=== PATIENT | female | born 1960 | race Two or more races ===

== ENCOUNTER → 2016-08-26 | Outpatient (REF) | payer MEDICARE, MEDICAID | LOC: M SFHCCLAY 15:21 | PROVIDERS: ATTEND Family Medicine | DX: Z00.00 Encounter for general adult medical examination without abnormal findings (principal); Z11.59 Encounter for screening for other viral diseases; Z23 Encounter for immunization; F17.210 Nicotine dependence, cigarettes, uncomplicated | CPT/HCPCS: 90471; G0472 ==

== ENCOUNTER → 2016-09-23 | Outpatient (CLI) | payer MEDICARE, MEDICAID ==
--- NOTE | 2016-09-23 15:11 | REPMRS ---
Patient History The patient states she has not had a clinical breast exam in over a year. Patient is postmenopausal and had first child at age 34. Digital Woman Screen Mammo: September 23, 2016 - Exam #: [id number] Bilateral CC and MLO view(s) were taken. Technologist: Angy Orantes, Technologist Prior study comparison: May 19, 2012, digital woman screen mammo performed at [facility] to [facility]. May 19, 2011, digital woman screen mammo performed at [facility] to [facility]. FINDINGS: There are scattered fibroglandular densities. There is a fairly symmetric fibroglandular pattern in both breasts. There has been no interval development of masses, areas of architectural distortion or clusters of microcalcifications typical of malignancy. ASSESSMENT: BI-RADS/ACR category 2 mammogram. Benign finding(s). Recommendation Routine screening mammogram of both breasts in 1 year (for women over age 40). This mammogram was interpreted with the aid of an FDA-approved computer-aided dectection system. Electronically Signed By: Manny Meyers MD 09/23/16 [id number]
== END ==
LOC: M WHC 12:52
PROVIDERS: ATTEND Family Medicine
DX: Z12.31 Encounter for screening mammogram for malignant neoplasm of breast (principal)

== ENCOUNTER 2017-01-09 15:11 | Emergency (ER) | payer MEDICARE, MEDICAID ==
[~2017-01-09] VITALS: Ht 160 cm; Wt 102.3 kg
[2017-01-09 17:30] LABS: BASO % 0.1 % (0.0-1.0); EOS # 0.1 10^3/uL (0.0-0.50); EOS % 1.1 % (0.0-3.0); IMMATURE GRANULOCYTE % 0.1 % (0-0); LYMPH % 13.4 % (24.0-44.0); MEAN CORPUSCULAR VOLUME 90.5 fl (80.0-96.0); MONO # 0.5 10^3/uL (0.0-0.8); MONO % 6.4 % (0.0-5.0); NEUTROPHILS # 5.6 10^3/uL (1.8-7.7); NEUTROPHILS % 78.9 % (36.0-66.0); PLATELET COUNT, AUTOMATED 208 10^3/uL (150-450); RED CELL DISTRIBUTION WIDTH 13.6 % (11.5-14.5); WHITE BLOOD COUNT 7.2 10^3/uL (4.0-10.0)
[2017-01-09 17:43] LABS: ANION GAP 7 MEQ/L (8-16); BLOOD UREA NITROGEN 19 MG/DL (7-18); CARBON DIOXIDE LEVEL 27 MEQ/L (21-32); CHLORIDE LEVEL 108 MEQ/L (98-107); CREATININE FOR GFR 0.91 MG/DL (0.55-1.02); GLOMERULAR FILTRATION RATE > 60.0 (>51); GLUCOSE, FASTING 92 MG/DL (70-105); POTASSIUM SERUM 4.2 MEQ/L (3.5-5.1); SODIUM LEVEL 142 MEQ/L (136-145)
[2017-01-09 20:17] VITALS: BP 148/88
--- NOTE | 2017-01-10 08:07 | REP ---
CHEST, TWO VIEWS: HISTORY: Cough. COMPARISON: 09/01/2014 The lungs are clear. The heart is normal in size. The pulmonary vasculature is normal in appearance. The bony structure is intact. IMPRESSION: No acute disease. Signed by Mt Alfredo MD 01/10/2017 09:13 A
== END 2017-01-09 20:21 | disposition home or self-care (01) ==
LOC: M ED 15:11 → EDBD 15:11 → M ED 20:21
DX: R19.7 Diarrhea, unspecified (principal); R05 Cough; F17.200 Nicotine dependence, unspecified, uncomplicated; Z88.1 Allergy status to other antibiotic agents

== ENCOUNTER → 2017-02-24 | Outpatient (REF) | payer MEDICARE, MEDICAID ==
[2017-02-24 16:46] LABS: ALBUMIN 3.5 GM/DL (3.2-5.2); ALBUMIN/GLOBULIN RATIO 0.97 (1.00-1.93); ALKALINE PHOSPHATASE 89 U/L (45-117); ALT/SGPT 28 U/L (12-78); ANION GAP 5 MEQ/L (8-16); AST/SGOT 15 U/L (7-37); BILIRUBIN,TOTAL 0.4 MG/DL (0.2-1.0); BLOOD UREA NITROGEN 17 MG/DL (7-18); CALCIUM LEVEL 8.8 MG/DL (8.5-10.1); CARBON DIOXIDE LEVEL 28 MEQ/L (21-32); CHLORIDE LEVEL 109 MEQ/L (98-107); CHOLESTEROL LEVEL 256 MG/DL (<200); CHOLESTEROL RISK RATIO 6.918 (<5); CREATININE FOR GFR 0.85 MG/DL (0.55-1.02); GLOMERULAR FILTRATION RATE > 60.0 (>51); GLUCOSE, FASTING 91 MG/DL (70-105); HDL CHOLESTEROL 37 MG/DL (>40); LDL CHOLESTEROL 168.4 MG/DL (<100); NON-HDL-C 219 MG/DL; POTASSIUM SERUM 4.4 MEQ/L (3.5-5.1); SODIUM LEVEL 142 MEQ/L (136-145); TOTAL PROTEIN 7.1 GM/DL (6.4-8.2); TRIGLYCERIDES LEVEL 253 MG/DL (<150)
[2017-02-24 16:47] LABS: ESTIMATED AVERAGE GLUCOSE 123 MG/DL (60-110); HEMOGLOBIN A1c 5.9 %
== END ==
LOC: M LAB REF 15:38
DX: Z00.00 Encounter for general adult medical examination without abnormal findings (principal); Z79.899 Other long term (current) drug therapy
CPT/HCPCS: 84443

== ENCOUNTER → 2017-03-29 | Outpatient (REF) | payer MEDICARE, MEDICAID ==
[2017-03-31 10:47] LABS: HIV 1&2 SCREEN CENTAUR NEGATIVE (NEGATIVE)
== END ==
LOC: M SFHCCLAY 14:25
DX: Z11.4 Encounter for screening for human immunodeficiency virus [HIV] (principal)
CPT/HCPCS: 87389

== ENCOUNTER → 2017-04-22 | Outpatient (REF) | payer MEDICARE ==
[2017-04-22 20:25] LABS: AMORPHOUS SEDIMENT MODERATE (NEGATIVE); APPEARANCE, URINE TURBID (CLEAR); BACTERIA, URINE AUTO NEGATIVE (NEGATIVE); BILIRUBIN, URINE AUTO NEGATIVE (NEGATIVE); BLOOD, URINE BLOOD NEGATIVE (NEGATIVE); COLOR, URINE AMBER (YELLOW); GLUCOSE, URINE (UA) AUTO NEGATIVE (NEGATIVE); KETONE, URINE AUTO NEGATIVE (NEGATIVE); LEUKOCYTE ESTERASE, URINE AUTO NEGATIVE (NEGATIVE); NITRITE, URINE AUTO NEGATIVE (NEGATIVE); PROTEIN, URINE AUTO NEGATIVE (NEGATIVE); RBC, URINE AUTO 0 /HPF (0-3); SPECIFIC GRAVITY URINE AUTO 1.027 (1.002-1.035); SQUAMOUS EPITHELIAL CELL UR AU 7 /HPF (0-6); WBC, URINE AUTO 6 /HPF (0-3)
== END ==
LOC: M SMT 17:04
DX: N39.41 Urge incontinence (principal)
CPT/HCPCS: 81001

== ENCOUNTER → 2017-04-30 | Outpatient (REF) | payer MEDICARE, MEDICAID | LOC: M SMT 17:01 | DX: N39.41 Urge incontinence (principal) | CPT/HCPCS: 87086 ==

== ENCOUNTER → 2017-07-08 | Outpatient (REF) | payer MEDICARE, MEDICAID ==
[2017-07-08 15:37] LABS: CHOLESTEROL LEVEL 167 MG/DL (<200); CHOLESTEROL RISK RATIO 4.638 (<5); HDL CHOLESTEROL 36 MG/DL (>40); LDL CHOLESTEROL 106.6 MG/DL (<100); NON-HDL-C 131 MG/DL; TRIGLYCERIDES LEVEL 122 MG/DL (<150)
[2017-07-09 12:29] LABS: HEPATITIS C VIRUS ABY INDEX < 0.0 INDEX (<0.8)
== END ==
LOC: M LAB REF 14:15
DX: R94.6 Abnormal results of thyroid function studies (principal); Z79.899 Other long term (current) drug therapy
CPT/HCPCS: 84443

== ENCOUNTER 2017-09-20 20:14 | Inpatient (IN) | payer MEDICARE, MEDICAID ==
[2017-09-20 21:38] LABS: BASO % 0.3 % (0.0-1.0); EOS # 0.3 10^3/uL (0.0-0.50); EOS % 2.5 % (0.0-3.0); HEMATOCRIT 47.6 % (36.0-47.0); HEMOGLOBIN 15.4 g/dl (12.0-15.5); IMMATURE GRANULOCYTE % 0.4 % (0-3.0); LYMPH # 2.4 10^3/uL (1.5-4.5); LYMPH % 23.9 % (24.0-44.0); MEAN CORPUSCULAR HEMOGLOBIN 29.6 pg (27.0-33.0); MEAN CORPUSCULAR HGB CONC 32.4 g/dl (32.0-36.5); MEAN CORPUSCULAR VOLUME 91.4 fl (80.0-96.0); MONO # 0.7 10^3/uL (0.0-0.8); MONO % 6.5 % (0.0-5.0); NEUTROPHILS # 6.7 10^3/uL (1.8-7.7); NEUTROPHILS % 66.4 % (36.0-66.0); PLATELET COUNT, AUTOMATED 207 10^3/uL (150-450); RED BLOOD COUNT 5.21 10^6/uL (4.00-5.40); RED CELL DISTRIBUTION WIDTH 13.8 % (11.5-14.5)
[2017-09-20 22:04] LABS: ALBUMIN 3.2 GM/DL (3.2-5.2); ALBUMIN/GLOBULIN RATIO 0.78 (1.00-1.93); ALKALINE PHOSPHATASE 112 U/L (45-117); ALT/SGPT 22 U/L (12-78); ANION GAP 7 MEQ/L (8-16); AST/SGOT 12 U/L (7-37); BILIRUBIN,DIRECT < 0.1 MG/DL (0.0-0.2); BILIRUBIN,TOTAL 0.5 MG/DL (0.2-1.0); BLOOD UREA NITROGEN 12 MG/DL (7-18); CALCIUM LEVEL 8.8 MG/DL (8.5-10.1); CARBON DIOXIDE LEVEL 25 MEQ/L (21-32); CHLORIDE LEVEL 111 MEQ/L (98-107); CK-MB VALUE MASS 1.1 NG/ML (<3.6); CPK CREATINE PHOSPHOKINASE 58 U/L (26-192); CREATININE FOR GFR 0.86 MG/DL (0.55-1.30); GLOMERULAR FILTRATION RATE > 60.0 (>51); GLUCOSE, FASTING 118 MG/DL (70-100); LIPASE 72 U/L (73-393); MB/CK RELATIVE INDEX 1.89 (< OR =4); POTASSIUM SERUM 3.8 MEQ/L (3.5-5.1); SODIUM LEVEL 143 MEQ/L (136-145); TOTAL PROTEIN 7.3 GM/DL (6.4-8.2); TROPONIN I < 0.02 NG/ML (< 0.10)
[2017-09-20] MEDS: GASTROGRAFIN SOLUTION 30ML PO ×2 (22:29→23:01)
[2017-09-20] MEDS ORDERED: ISOVUE-370 76% 100ML VIAL (Q9967) As Ordered (23:18)
[2017-09-20 23:53] LABS: APPEARANCE, URINE HAZY (CLEAR); BACTERIA, URINE AUTO 1+ (NEGATIVE); BILIRUBIN, URINE AUTO NEGATIVE (NEGATIVE); BLOOD, URINE BLOOD NEGATIVE (NEGATIVE); COLOR, URINE YELLOW (YELLOW); GLUCOSE, URINE (UA) AUTO NEGATIVE (NEGATIVE); KETONE, URINE AUTO NEGATIVE (NEGATIVE); LEUKOCYTE ESTERASE, URINE AUTO NEGATIVE (NEGATIVE); MUCUS, URINE SMALL (NEGATIVE); NITRITE, URINE AUTO NEGATIVE (NEGATIVE); PROTEIN, URINE AUTO NEGATIVE (NEGATIVE); RBC, URINE AUTO 2 /HPF (0-3); SPECIFIC GRAVITY URINE AUTO 1.023 (1.002-1.035); SQUAMOUS EPITHELIAL CELL UR AU 6 /HPF (0-6); WBC, URINE AUTO 2 /HPF (0-3)
[2017-09-21] MEDS: METOCLOPRAMIDE INJ 10MG/2ML VIAL (J2765) IV (04:40)
[2017-09-21] MEDS: MORPHINE 4 MG/ML 1ML VIAL/SYRINGE (J2270) IV (04:41)
[2017-09-21] MEDS ORDERED: MORPHINE 4 MG/ML 1ML VIAL/SYRINGE (J2270) IV (05:15)
[2017-09-21] MEDS: PIPERACILLIN/TAZOBACTAM SOD 3.375 GM in D5W MINI-BAG PLUS 50 ML IV ×3 (06:42→18:20)
[2017-09-21] MEDS: PANTOPRAZOLE 40MG INJ (PROTONIX) (C9113) IV (06:42)
[2017-09-21] MEDS: NS 1,000 ML IV ×3 (06:43→22:57)
[2017-09-21 07:10] LABS: BASO % 0.4 % (0.0-1.0); EOS # 0.2 10^3/uL (0.0-0.50); EOS % 2.7 % (0.0-3.0); HEMATOCRIT 42.5 % (36.0-47.0); HEMOGLOBIN 14.1 g/dl (12.0-15.5); IMMATURE GRANULOCYTE % 0.3 % (0-3.0); LYMPH # 2.6 10^3/uL (1.5-4.5); LYMPH % 28.4 % (24.0-44.0); MEAN CORPUSCULAR HEMOGLOBIN 29.6 pg (27.0-33.0); MEAN CORPUSCULAR HGB CONC 33.2 g/dl (32.0-36.5); MEAN CORPUSCULAR VOLUME 89.3 fl (80.0-96.0); MONO # 0.6 10^3/uL (0.0-0.8); MONO % 6.7 % (0.0-5.0); NEUTROPHILS # 5.5 10^3/uL (1.8-7.7); NEUTROPHILS % 61.5 % (36.0-66.0); PLATELET COUNT, AUTOMATED 201 10^3/uL (150-450); RED BLOOD COUNT 4.76 10^6/uL (4.00-5.40); RED CELL DISTRIBUTION WIDTH 13.6 % (11.5-14.5)
[2017-09-21 07:34] LABS: ALBUMIN 2.8 GM/DL (3.2-5.2); ALBUMIN/GLOBULIN RATIO 0.78 (1.00-1.93); ALKALINE PHOSPHATASE 109 U/L (45-117); ALT/SGPT 25 U/L (12-78); ANION GAP 6 MEQ/L (8-16); AST/SGOT 21 U/L (7-37); BILIRUBIN,TOTAL 0.6 MG/DL (0.2-1.0); BLOOD UREA NITROGEN 10 MG/DL (7-18); CALCIUM LEVEL 8.2 MG/DL (8.5-10.1); CARBON DIOXIDE LEVEL 27 MEQ/L (21-32); CHLORIDE LEVEL 110 MEQ/L (98-107); GLOMERULAR FILTRATION RATE > 60.0 (>51); GLUCOSE, FASTING 86 MG/DL (70-100); POTASSIUM SERUM 3.7 MEQ/L (3.5-5.1); SODIUM LEVEL 143 MEQ/L (136-145); TOTAL PROTEIN 6.4 GM/DL (6.4-8.2)
[2017-09-21] MEDS: oxyBUTYnin 5 MG TAB PO ×2 (09:37→22:57)
[2017-09-21] MEDS: ENOXAPARIN 40 MG/0.4 ML SYRINGE (J1650) SC (09:38)
[2017-09-21] MEDS ORDERED: fentaNYL 100 MCG/2 ML INJECTION (J3010) As Ordered (20:23)
[2017-09-21] MEDS ORDERED: MIDAZOLAM INJ 2 MG/2 ML VIAL (J2250) As Ordered (20:24)
[2017-09-21] MEDS ORDERED: PROPOFOL 200 MG/20 ML VIAL As Ordered (20:24)
[2017-09-21] MEDS ORDERED: LIDOCAINE 2% INJ 100 MG/5 ML SDV (FOR ANES.) As Ordered (20:24)
[2017-09-21] MEDS ORDERED: ROCURONIUM BROMIDE 50 MG/5 ML VIAL As Ordered (20:24)
[2017-09-21] MEDS ORDERED: ePHEDrine SULFATE 25 MG/5 ML(5MG/ML) SYRINGE As Ordered (20:57)
[2017-09-21] MEDS ORDERED: PHENYLephrine HCL 500 MCG/5 ML (100MCG/ML) SYRINGE (J2370) As Ordered (20:57)
[2017-09-21] MEDS ORDERED: GLYCOPYRROLATE INJ 0.2 MG/ML 2 ML VIAL As Ordered (21:01)
[2017-09-21] MEDS: ISOVUE-300 61% 50ML VIAL (Q9967) As Ordered (21:02)
[2017-09-21] MEDS ORDERED: ISOVUE-300 61% 50ML VIAL (Q9967) As Ordered (21:04)
[2017-09-21] MEDS ORDERED: SUGAMMADEX SODIUM 500 MG/5 ML VIAL (BRIDION) As Ordered (21:12)
[2017-09-21] MEDS ORDERED: ONDANSETRON 4MG/2ML VIAL (J2405) As Ordered (21:13)
[2017-09-21] MEDS ORDERED: dexameTHASONE 4 MG/ML 1ML VIAL (J1100) As Ordered ×2 (21:13)
[2017-09-21] MEDS ORDERED: HYDROMORPHONE HCL 0.5 MG/ 0.5 ML SYRINGE (J1170 PER 1) IV (22:00)
[2017-09-21] MEDS: LR 1,000 ML IV (22:00)
[2017-09-21] MEDS ORDERED: ONDANSETRON 4MG/2ML VIAL (J2405) IV (22:00)
[2017-09-21] MEDS ORDERED: fentaNYL 100 MCG/2 ML INJECTION (J3010) IV (22:00)
[2017-09-21] MEDS ORDERED: PERCOCET 5MG/325MG TAB PO (22:00)
[2017-09-22] MEDS: ONDANSETRON 4MG/2ML VIAL (J2405) IV (00:38)
[2017-09-22] MEDS: PIPERACILLIN/TAZOBACTAM SOD 3.375 GM in D5W MINI-BAG PLUS 50 ML IV ×4 (00:38→17:45)
[2017-09-22] MEDS: PANTOPRAZOLE 40MG INJ (PROTONIX) (C9113) IV (06:09)
[2017-09-22 06:16] LABS: HEMATOCRIT 43.5 % (36.0-47.0); HEMOGLOBIN 14.2 g/dl (12.0-15.5); MEAN CORPUSCULAR HEMOGLOBIN 28.7 pg (27.0-33.0); MEAN CORPUSCULAR HGB CONC 32.6 g/dl (32.0-36.5); MEAN CORPUSCULAR VOLUME 87.9 fl (80.0-96.0); PLATELET COUNT, AUTOMATED 187 10^3/uL (150-450); RED BLOOD COUNT 4.95 10^6/uL (4.00-5.40); RED CELL DISTRIBUTION WIDTH 13.4 % (11.5-14.5); WHITE BLOOD COUNT 4.9 10^3/uL (4.0-10.0)
[2017-09-22 06:53] LABS: ALBUMIN 2.8 GM/DL (3.2-5.2); ALBUMIN/GLOBULIN RATIO 0.72 (1.00-1.93); ALKALINE PHOSPHATASE 289 U/L (45-117); ALT/SGPT 260 U/L (12-78); ANION GAP 7 MEQ/L (8-16); AST/SGOT 351 U/L (7-37); BLOOD UREA NITROGEN 7 MG/DL (7-18); CALCIUM LEVEL 8.4 MG/DL (8.5-10.1); CARBON DIOXIDE LEVEL 26 MEQ/L (21-32); CHLORIDE LEVEL 110 MEQ/L (98-107); CREATININE FOR GFR 0.74 MG/DL (0.55-1.30); GLOMERULAR FILTRATION RATE > 60.0 (>51); GLUCOSE, FASTING 148 MG/DL (70-100); POTASSIUM SERUM 3.7 MEQ/L (3.5-5.1); SODIUM LEVEL 143 MEQ/L (136-145); TOTAL PROTEIN 6.7 GM/DL (6.4-8.2)
[2017-09-22] MEDS: oxyBUTYnin 5 MG TAB PO ×2 (08:36→21:42)
[2017-09-22] MEDS: ENOXAPARIN 40 MG/0.4 ML SYRINGE (J1650) SC (08:36)
[2017-09-22] MEDS: NS 1,000 ML IV (12:02)
[2017-09-23] MEDS: PIPERACILLIN/TAZOBACTAM SOD 3.375 GM in D5W MINI-BAG PLUS 50 ML IV ×5 (00:07→23:54)
[2017-09-23] MEDS: PANTOPRAZOLE 40MG INJ (PROTONIX) (C9113) IV (05:14)
[2017-09-23 06:24] LABS: BASO % 0.2 % (0.0-1.0); EOS # 0.1 10^3/uL (0.0-0.50); EOS % 0.7 % (0.0-3.0); HEMATOCRIT 39.6 % (36.0-47.0); IMMATURE GRANULOCYTE % 0.5 % (0-3.0); LYMPH % 23.2 % (24.0-44.0); MEAN CORPUSCULAR HEMOGLOBIN 29.6 pg (27.0-33.0); MEAN CORPUSCULAR HGB CONC 32.8 g/dl (32.0-36.5); MEAN CORPUSCULAR VOLUME 90.2 fl (80.0-96.0); MONO # 0.4 10^3/uL (0.0-0.8); MONO % 4.7 % (0.0-5.0); NEUTROPHILS # 6.2 10^3/uL (1.8-7.7); NEUTROPHILS % 70.7 % (36.0-66.0); PLATELET COUNT, AUTOMATED 182 10^3/uL (150-450); RED BLOOD COUNT 4.39 10^6/uL (4.00-5.40); RED CELL DISTRIBUTION WIDTH 13.5 % (11.5-14.5); WHITE BLOOD COUNT 8.8 10^3/uL (4.0-10.0)
[2017-09-23 06:41] LABS: ALBUMIN 2.7 GM/DL (3.2-5.2); ALBUMIN/GLOBULIN RATIO 0.77 (1.00-1.93); ALKALINE PHOSPHATASE 253 U/L (45-117); ALT/SGPT 342 U/L (12-78); ANION GAP 7 MEQ/L (8-16); AST/SGOT 194 U/L (7-37); BLOOD UREA NITROGEN 5 MG/DL (7-18); CALCIUM LEVEL 8.5 MG/DL (8.5-10.1); CARBON DIOXIDE LEVEL 27 MEQ/L (21-32); CHLORIDE LEVEL 113 MEQ/L (98-107); CREATININE FOR GFR 0.78 MG/DL (0.55-1.30); GLOMERULAR FILTRATION RATE > 60.0 (>51); GLUCOSE, FASTING 95 MG/DL (70-100); POTASSIUM SERUM 3.6 MEQ/L (3.5-5.1); SODIUM LEVEL 147 MEQ/L (136-145); TOTAL PROTEIN 6.2 GM/DL (6.4-8.2)
[2017-09-23] MEDS ORDERED: PROPOFOL 200 MG/20 ML VIAL As Ordered (07:18)
[2017-09-23] MEDS ORDERED: LIDOCAINE 2% INJ 100 MG/5 ML SDV (FOR ANES.) As Ordered (07:18)
[2017-09-23] MEDS ORDERED: fentaNYL 250 MCG/5 ML INJECTION (J3010) As Ordered (07:18)
[2017-09-23] MEDS ORDERED: ROCURONIUM BROMIDE 50 MG/5 ML VIAL As Ordered (07:18)
[2017-09-23] MEDS ORDERED: MIDAZOLAM INJ 2 MG/2 ML VIAL (J2250) As Ordered (07:19)
[2017-09-23] MEDS ORDERED: ePHEDrine SULFATE 25 MG/5 ML(5MG/ML) SYRINGE As Ordered (07:55)
[2017-09-23] MEDS: BUPIVACAINE HCL 0.25% 30 ML VIAL As Ordered (08:01)
[2017-09-23] MEDS ORDERED: dexameTHASONE 4 MG/ML 1ML VIAL (J1100) As Ordered (08:22)
[2017-09-23] MEDS ORDERED: ONDANSETRON 4MG/2ML VIAL (J2405) As Ordered (08:22)
[2017-09-23] MEDS ORDERED: GLYCOPYRROLATE INJ 0.2 MG/ML 2 ML VIAL As Ordered (08:23)
[2017-09-23] MEDS ORDERED: LABETALOL HCL 100 MG/20 ML VIAL As Ordered (08:23)
[2017-09-23] MEDS ORDERED: NEOSTIGMINE 10 MG/10 ML VIAL (J2710) As Ordered (08:23)
[2017-09-23] MEDS ORDERED: HYDROmorphone HCL 2 MG/ML 1ML VIAL (J1170) As Ordered (08:50)
[2017-09-23] MEDS ORDERED: NORCO, ANEXSIA 5/325MG TABLET (HYDROcodone/ACETAMINOPHEN) PO (09:45)
[2017-09-23] MEDS ORDERED: MORPHINE 4 MG/ML 1ML VIAL/SYRINGE (J2270) IV (09:45)
[2017-09-23] MEDS ORDERED: IBUPROFEN 600 MG TAB PO (09:45)
[2017-09-23] MEDS: LR 1,000 ML IV (10:25)
[2017-09-23] MEDS: oxyBUTYnin 5 MG TAB PO ×2 (10:25→21:04)
[2017-09-23] MEDS: ATORVASTATIN 20 MG TAB PO (21:04)
[2017-09-24] MEDS: LR 1,000 ML IV (00:22)
[2017-09-24] MEDS: PIPERACILLIN/TAZOBACTAM SOD 3.375 GM in D5W MINI-BAG PLUS 50 ML IV ×2 (05:36→11:46)
[2017-09-24] MEDS: ACETAMINOPHEN TAB 650MG DOSE (2X325MG) PO ×2 (06:14→21:54)
[2017-09-24 07:06] LABS: ALBUMIN 2.4 GM/DL (3.2-5.2); ALBUMIN/GLOBULIN RATIO 0.71 (1.00-1.93); ALKALINE PHOSPHATASE 191 U/L (45-117); ALT/SGPT 224 U/L (12-78); ANION GAP 9 MEQ/L (8-16); AST/SGOT 68 U/L (7-37); BILIRUBIN,TOTAL 0.5 MG/DL (0.2-1.0); BLOOD UREA NITROGEN 12 MG/DL (7-18); CALCIUM LEVEL 8.2 MG/DL (8.5-10.1); CARBON DIOXIDE LEVEL 26 MEQ/L (21-32); CHLORIDE LEVEL 111 MEQ/L (98-107); CREATININE FOR GFR 0.81 MG/DL (0.55-1.30); GLOMERULAR FILTRATION RATE > 60.0 (>51); GLUCOSE, FASTING 99 MG/DL (70-100); POTASSIUM SERUM 3.7 MEQ/L (3.5-5.1); SODIUM LEVEL 146 MEQ/L (136-145); TOTAL PROTEIN 5.8 GM/DL (6.4-8.2)
[2017-09-24] MEDS: oxyBUTYnin 5 MG TAB PO ×2 (08:50→20:28)
[2017-09-24] MEDS: ENOXAPARIN 40 MG/0.4 ML SYRINGE (J1650) SC (15:43)
[2017-09-24] MEDS: ATORVASTATIN 20 MG TAB PO (20:28)
[2017-09-25] MEDS: oxyBUTYnin 5 MG TAB PO ×2 (10:09→20:51)
[2017-09-25] MEDS: ENOXAPARIN 40 MG/0.4 ML SYRINGE (J1650) SC (10:09)
[2017-09-25] MEDS: ATORVASTATIN 20 MG TAB PO (20:51)
[2017-09-26] MEDS: oxyBUTYnin 5 MG TAB PO ×2 (09:30→20:23)
[2017-09-26] MEDS: ENOXAPARIN 40 MG/0.4 ML SYRINGE (J1650) SC (09:30)
[2017-09-26] MEDS: ATORVASTATIN 20 MG TAB PO (20:23)
[2017-09-27] MEDS: oxyBUTYnin 5 MG TAB PO ×2 (09:44→20:01)
[2017-09-27] MEDS: ENOXAPARIN 40 MG/0.4 ML SYRINGE (J1650) SC (09:44)
[2017-09-27] MEDS: ATORVASTATIN 20 MG TAB PO (20:01)
[2017-09-28] MEDS: oxyBUTYnin 5 MG TAB PO (08:03)
[2017-09-28] MEDS: ENOXAPARIN 40 MG/0.4 ML SYRINGE (J1650) SC (08:04)
== END 2017-09-28 16:30 | disposition home health service (06) | DRG 418 ==
LOC: M ED INP 09-21 05:04 → M ED 20:14 → M MSPAV 09-21 06:33
PROC: 0F7D8DZ Dilation of Pancreatic Duct with Intraluminal Device, Via Natural or Artificial Opening Endoscopic (ICD-10-PCS; 2017-09-21 19:00)
PROC: 0FC98ZZ Extirpation of Matter from Common Bile Duct, Via Natural or Artificial Opening Endoscopic (ICD-10-PCS; 2017-09-21 19:00)
PROC: 0FT44ZZ Resection of Gallbladder, Percutaneous Endoscopic Approach (ICD-10-PCS; principal; 2017-09-21 20:36)
DX: K80.42 Calculus of bile duct with acute cholecystitis without obstruction (principal); G81.11 Spastic hemiplegia affecting right dominant side; E78.5 Hyperlipidemia, unspecified; N32.81 Overactive bladder; Z79.899 Other long term (current) drug therapy; Z87.820 Personal history of traumatic brain injury; Z88.1 Allergy status to other antibiotic agents

== ENCOUNTER 2017-12-03 09:16 | Day surgery (SDC) | payer MEDICARE, MEDICAID ==
[2017-12-03] MEDS: NS 1,000 ML IV (10:15)
[2017-12-03] MEDS ORDERED: PROPOFOL 200 MG/20 ML VIAL As Ordered (11:00)
== END 2017-12-03 11:56 | disposition home or self-care (01) ==
LOC: M OPP 09:16
DX: Z12.11 Encounter for screening for malignant neoplasm of colon (principal); K55.20 Angiodysplasia of colon without hemorrhage; D12.5 Benign neoplasm of sigmoid colon; K64.8 Other hemorrhoids; K57.30 Diverticulosis of large intestine without perforation or abscess without bleeding; E78.00 Pure hypercholesterolemia, unspecified; R32 Unspecified urinary incontinence; G81.90 Hemiplegia, unspecified affecting unspecified side; F17.210 Nicotine dependence, cigarettes, uncomplicated; Z79.899 Other long term (current) drug therapy; Z88.1 Allergy status to other antibiotic agents
CPT/HCPCS: 45385

== ENCOUNTER → 2018-07-21 | Outpatient (REF) | payer MEDICARE, MEDICAID ==
[~2018-07-21] MED LIST: ATOR1TAB21; ATOR1TAB21 PO; MULT1TAB10 PO; OXYB5TAB10; OXYB5TAB10 PO
== END ==
LOC: M SFHCWAGY 13:57
PROVIDERS: ATTEND Nurse Practitioner Family
DX: Z12.4 Encounter for screening for malignant neoplasm of cervix (principal)

== ENCOUNTER → 2018-07-21 | Outpatient (CLI) | payer MEDICARE, MEDICAID ==
--- NOTE | 2018-07-21 14:58 | REPMRS ---
Patient History The patient states she had a clinical breast exam in 07/2018. Digital Woman Screen Mammo: July 21, 2018 - Exam #: [id number] Bilateral CC and MLO view(s) were taken. Technologist: Angy Orantes, Technologist Prior study comparison: September 23, 2016, digital woman screen mammo performed at [facility]. May 19, 2012, digital woman screen mammo performed at [facility]. May 19, 2011, digital woman screen mammo performed at [facility]. FINDINGS: There are scattered fibroglandular densities. There has been no change in the appearance of the mammogram from the prior studies. There is a mild amount of scattered fibroglandular density which is fairly symmetric. There is no interval development of dominant mass, architectural distortion, or clustered microcalcification suggestive of malignancy. 3-D tomosynthesis shows no additional findings. Assessment: BI-RADS/ACR category 1 mammogram. Negative Mammogram. Recommendation Routine screening mammogram of both breasts in 1 year (for women over age 40). This patient's Lifetime Breast Cancer RIsk is estimated at 12.2 %. This mammogram was interpreted with the aid of an FDA-approved computer-aided dectection system. Electronically Signed By: Ab Cai MD 07/21/18 [id number]
== END ==
LOC: M WHC 13:21
PROVIDERS: ATTEND Nurse Practitioner Family
DX: Z01.419 Encounter for gynecological examination (general) (routine) without abnormal findings (principal); Z12.31 Encounter for screening mammogram for malignant neoplasm of breast
CPT/HCPCS: 77063; 77067; G0123

== ENCOUNTER → 2018-07-24 | Outpatient (REF) | payer MEDICARE, MEDICAID ==
[2018-07-24 17:42] LABS: APPEARANCE, URINE CLOUDY (CLEAR); BACTERIA, URINE AUTO NEGATIVE (NEGATIVE); BILIRUBIN, URINE AUTO NEGATIVE (NEGATIVE); BLOOD, URINE BLOOD NEGATIVE (NEGATIVE); COLOR, URINE YELLOW (YELLOW); GLUCOSE, URINE (UA) AUTO NEGATIVE (NEGATIVE); KETONE, URINE AUTO NEGATIVE (NEGATIVE); LEUKOCYTE ESTERASE, URINE AUTO NEGATIVE (NEGATIVE); MUCUS, URINE SMALL (NEGATIVE); NITRITE, URINE AUTO NEGATIVE (NEGATIVE); PROTEIN, URINE AUTO NEGATIVE (NEGATIVE); RBC, URINE AUTO 1 /HPF (0-3); SPECIFIC GRAVITY URINE AUTO 1.016 (1.002-1.035); SQUAMOUS EPITHELIAL CELL UR AU 8 /HPF (0-6); UROBILINOGEN, URINE AUTO 0.2 mg/dL (0.0-2.0); WBC, URINE AUTO 7 /HPF (0-3)
== END ==
LOC: M LAB REF 10:45
PROVIDERS: ATTEND Nurse Practitioner Family
DX: N39.0 Urinary tract infection, site not specified (principal)

== ENCOUNTER 2018-09-09 14:59 | Emergency (ER) | payer MEDICARE, MEDICAID ==
[~2018-09-09] VITALS: Ht 160 cm; Wt 100.5 kg
[2018-09-09 17:36] LABS: APPEARANCE, URINE HAZY (CLEAR); BACTERIA, URINE AUTO NEGATIVE (NEGATIVE); BILIRUBIN, URINE AUTO NEGATIVE (NEGATIVE); BLOOD, URINE BLOOD NEGATIVE (NEGATIVE); COLOR, URINE YELLOW (YELLOW); GLUCOSE, URINE (UA) AUTO NEGATIVE (NEGATIVE); KETONE, URINE AUTO TRACE mg/dL (NEGATIVE); LEUKOCYTE ESTERASE, URINE AUTO 1+ (NEGATIVE); MUCUS, URINE SMALL (NEGATIVE); NITRITE, URINE AUTO NEGATIVE (NEGATIVE); PROTEIN, URINE AUTO NEGATIVE (NEGATIVE); RBC, URINE AUTO 2 /HPF (0-3); SPECIFIC GRAVITY URINE AUTO 1.024 (1.002-1.035); SQUAMOUS EPITHELIAL CELL UR AU 5 /HPF (0-6); UROBILINOGEN, URINE AUTO 0.2 mg/dL (0.0-2.0); WBC, URINE AUTO 11 /HPF (0-3)
--- NOTE | 2018-09-09 18:26 | REPVR ---
EXAM: US Duplex Right Lower Extremity Veins, Limited EXAM DATE/TIME: 09/09/2018 5:59 PM CLINICAL HISTORY: 57 years old, female; Pain; Leg, lower; Right; Prior surgery; Additional info: Right lower extremity swelling eval dvt TECHNIQUE: Imaging protocol: Real-time Duplex ultrasound of the Right Lower Extremity with 2-D ferguson scale, color Doppler flow and spectral waveform analysis with image documentation. Limited exam was focused on the right lower extremity veins. COMPARISON: US Duplex, Ext,LOWER veins,unilat 03/01/2013 6:19 AM FINDINGS: Right deep veins: The common femoral, femoral, proximal profunda femoral and popliteal veins are patent without thrombus. Normal Doppler waveforms. Normal compressibility and/or augmentation response. Soft tissues: No popliteal cyst. IMPRESSION: No evidence of deep venous thrombosis in the right common femoral to right popliteal veins. Electronically signed by: Arnav Hernandez On 09/09/2018 18:26:00 PM
[2018-09-09] MEDS ORDERED: CETI10CH PO (20:04)
[2018-09-09] MEDS ORDERED: MUCI30TA5 PO (20:05)
[2018-09-09] MEDS ORDERED: FLON1SPR NARES (20:05)
[2018-09-09 20:38] VITALS: BP 136/67
== END 2018-09-09 20:40 | disposition home or self-care (01) ==
LOC: M ED 14:59
DX: J30.9 Allergic rhinitis, unspecified (principal); M79.89 Other specified soft tissue disorders; L30.9 Dermatitis, unspecified; F17.210 Nicotine dependence, cigarettes, uncomplicated; Z88.1 Allergy status to other antibiotic agents

== ENCOUNTER 2018-10-09 21:15 | Emergency (ER) | payer MEDICARE, MEDICAID ==
[~2018-10-09] VITALS: Ht 160 cm; Wt 100.5 kg
[~2018-10-09 21:15] MED LIST changes: +CETI10CH PO; +FLON1SPR NARES; +MUCI30TA5 PO
[2018-10-09 22:15] VITALS: BP 140/74
[2018-10-09] MEDS ORDERED: ACET-908 PO (22:26)
[2018-10-09] MEDS ORDERED: ACETAMINOPHEN TAB 650MG DOSE (2X325MG) PO ONE (22:30)
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
== END 2018-10-09 23:44 | disposition home or self-care (01) ==
LOC: M ED 21:15
DX: S90.31XA Contusion of right foot, initial encounter (principal); W23.0XXA Caught, crushed, jammed, or pinched between moving objects, initial encounter; Y92.89 Other specified places as the place of occurrence of the external cause; Y93.89 Activity, other specified; Y99.8 Other external cause status; Z88.1 Allergy status to other antibiotic agents

== ENCOUNTER 2018-11-02 20:51 | Emergency (ER) | payer MEDICARE, MEDICAID ==
[~2018-11-02] VITALS: Ht 160 cm; Wt 103.2 kg
[2018-11-02 20:51] VITALS: BP 178/81
[~2018-11-02 20:51] MED LIST changes: +ACET-908 PO
--- NOTE | 2018-11-02 23:10 | REPVR ---
PROCEDURE INFORMATION: Exam: US Duplex Right Lower Extremity Veins, Limited Exam date and time: 11/02/2018 10:15 PM Clinical history: 58 years old, female; Pain; Foot; Right; Additional info: R/O dvt TECHNIQUE: Imaging protocol: Real-time Duplex ultrasound of the Right Lower Extremity with 2-D ferguson scale, color Doppler flow and spectral waveform analysis with image documentation. Limited exam was focused on the right lower extremity veins. COMPARISON: US Duplex, Ext,LOWER veins,unilat 09/09/2018 5:47 PM FINDINGS: Limitations: Body habitus. Right deep veins: Unremarkable. The common femoral, femoral, proximal profunda femoral and popliteal veins are patent without thrombus. Normal Doppler waveforms. Normal compressibility and/or augmentation response. Right superficial veins: Unremarkable. Saphenofemoral junction is patent without thrombus. Soft tissues: Unremarkable. IMPRESSION: No deep venous thrombus demonstrated in the right lower extremity. Electronically signed by: Juan Christina On 11/02/2018 23:10:06 PM
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
== END 2018-11-02 22:57 | disposition home or self-care (01) ==
LOC: M ED 20:51
DX: R60.0 Localized edema (principal); G81.11 Spastic hemiplegia affecting right dominant side; E78.5 Hyperlipidemia, unspecified; Z87.820 Personal history of traumatic brain injury; Z88.1 Allergy status to other antibiotic agents

== ENCOUNTER 2018-12-05 15:55 | Emergency (ER) | payer MEDICARE, MEDICAID ==
[~2018-12-05] VITALS: Ht 160 cm; Wt 106.8 kg
[2018-12-05 20:26] VITALS: BP 135/65
== END 2018-12-05 20:30 | disposition home or self-care (01) ==
LOC: M ED 15:55
DX: N39.3 Stress incontinence (female) (male) (principal); E78.00 Pure hypercholesterolemia, unspecified; G81.91 Hemiplegia, unspecified affecting right dominant side; Z99.3 Dependence on wheelchair; Z87.828 Personal history of other (healed) physical injury and trauma; Z88.1 Allergy status to other antibiotic agents

== ENCOUNTER 2018-12-10 10:32 | Emergency (ER) | payer MEDICARE, MEDICAID ==
[~2018-12-10] VITALS: Ht 160 cm; Wt 102.3 kg
[2018-12-10 10:32] VITALS: BP 120/57
[2018-12-10] MEDS ORDERED: NIX1LIQ3 TOP (10:52)
== END 2018-12-10 11:11 | disposition home or self-care (01) ==
LOC: M ED 10:32
DX: B85.0 Pediculosis due to Pediculus humanus capitis (principal)

== ENCOUNTER 2019-01-30 11:00 | Outpatient (RCR) | payer MEDICARE, MEDICAID ==
[~2019-01-30 11:00] MED LIST changes: +NIX1LIQ3 TOP
== END 2019-02-07 ==
LOC: M PT 11:00
PROVIDERS: ATTEND Nurse Practitioner Family
DX: N39.46 Mixed incontinence (principal)

== ENCOUNTER 2019-02-03 15:30 | Emergency (ER) | payer MEDICARE, MEDICAID ==
[2019-02-03] MEDS ORDERED: SODIUM BICARBONATE 8.4% INJ 50 ML SYRINGE ONE (15:31)
[2019-02-03] MEDS ORDERED: CALCIUM CHLORIDE 10% 1 GM/10 ML SYR ONE (15:31)
[2019-02-03] MEDS ORDERED: EPINEPHrine 1MG/10ML SYRINGE 1.5IN ONE (15:31)
[2019-02-03] MEDS ORDERED: EPINEPHrine 1MG/10ML SYRINGE 1.5IN IV STA ×4 (17:26)
[2019-02-03] MEDS ORDERED: SODIUM BICARBONATE 8.4% INJ 50 ML SYRINGE IV STA ×3 (17:26)
[2019-02-03] MEDS ORDERED: EPINEPHrine 1MG/10ML SYRINGE 1.5IN XX STA ×5 (17:26)
[2019-02-03] MEDS ORDERED: CALCIUM CHLORIDE 10% 1 GM in D5W 100 ML IV ONE (17:30)
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
== END 2019-02-03 18:38 | disposition expired ==
LOC: EDBD 15:30 → MERGE 15:30 → M ED 15:30
DX: I46.9 Cardiac arrest, cause unspecified (principal); R57.1 Hypovolemic shock; S38.1XXA Crushing injury of abdomen, lower back, and pelvis, initial encounter; S09.90XA Unspecified injury of head, initial encounter; S22.41XA Multiple fractures of ribs, right side, initial encounter for closed fracture; T79.7XXA Traumatic subcutaneous emphysema, initial encounter; V03.10XA Pedestrian on foot injured in collision with car, pick-up truck or van in traffic accident, initial encounter; Y92.410 Unspecified street and highway as the place of occurrence of the external cause; Y93.9 Activity, unspecified; Y99.9 Unspecified external cause status; G80.0 Spastic quadriplegic cerebral palsy; Z99.3 Dependence on wheelchair; E66.9 Obesity, unspecified; F17.200 Nicotine dependence, unspecified, uncomplicated
CPT/HCPCS: 31500; 32551; 36430; 36556; 86850; 86900; 86901; 86920; 92950; 96374; 96375; 99291; 99292; P9016

== ENCOUNTER → 2019-02-04 | Outpatient (REF) ==
--- NOTE | 2019-02-04 09:39 | REP ---
Clinical: Autopsy. Technique: Portable supine chest x-ray. Findings: Endotracheal tube 1 cm above the earnest. Left IJ line with tip in the SVC/right atrium. Right-sided chest tube overlies the right base. Bilateral pulmonary opacities noted. Left lateral rib fractures. Possible right clavicle fracture. Impression: Findings as noted above. Electronically Signed by Arnav Hall MD 02/04/2019 09:31 A
--- NOTE | 2019-02-04 09:41 | REP ---
Clinical: Autopsy. Technique: Portable cross-table lateral view of the cervical spine. Findings: Endotracheal tube. Evaluation of the cervical spine is limited due to overlying opacities. Visualized portions of the calvarium and facial bones appear intact. Skull base, C1, C2 and C2-3 alignment appear normal. Evidence for prior mandibular fixation. Impression: Findings as noted above. Electronically Signed by Arnav Hall MD 02/04/2019 09:32 A
--- NOTE | 2019-02-04 09:43 | REP ---
Clinical: Autopsy. Technique: Portable supine to the pelvis Findings: Pelvic fractures along with traumatic diastases at the symphysis pubis. Bilateral hip fractures noted. Subcutaneous emphysema appreciated in the surrounding soft tissues. Rounded calcification in the mid pelvis consistent with calcified fibroid. Impression: Findings as noted above. Electronically Signed by Arnav Hall MD 02/04/2019 09:35 A
--- NOTE | 2019-02-04 09:45 | REP ---
Clinical: Autopsy. Technique: Portable AP and lateral views of the skull. Findings: Endotracheal tube identified. Left IJ line. Evidence for prior right mandibular fixation. Subtle left-sided skull fractures cannot be excluded. Right clavicle fracture. Left rib fractures. Impression: Findings as noted above. Electronically Signed by Arnav Hall MD 02/04/2019 09:36 A
== END ==
LOC: M LAB 02-03 19:59 → M RAD 19:59